=== PATIENT | male | born 1970 | race Caucasian/White ===

== ENCOUNTER 2022-08-04 21:35 | Inpatient (IN) | payer OTHER ==
[~2022-08-04] VITALS: Ht 180.3 cm; Wt 129.3 kg
[2022-08-04] MEDS ORDERED: PIPERACILLIN/TAZO 3.375 GM/D5W 50 ML IV ONE (22:00)
[2022-08-04] MEDS ORDERED: 0.9% SODIUM CHLORIDE 10 ML SYRINGE IVP PRN (22:00)
[2022-08-04] MEDS ORDERED: POVIDONE-IODINE 10% 120 ML SOLUTION TP ONE (22:15)
[2022-08-04] MEDS ORDERED: SODIUM CHLORIDE 0.9% 1,000 ML IV ONE (22:15)
[2022-08-04 22:34] LABS: BASOPHILS % (AUTO) 0.3 % (0.0-2.0); EOSINOPHILS % (AUTO) 0.6 % (1.0-6.0); HEMATOCRIT 36.5 % (41-53); HEMOGLOBIN 12.2 g/dL (13.5-17.5); LYMPHOCYTES # (AUTO) 1.1 K/uL (1.0-4.8); MEAN CORPUSCULAR HEMOGLOBIN 27.2 pg (26.0-34.0); MEAN CORPUSCULAR HGB CONC 33.4 G/dL (31.0-37.0); MEAN CORPUSCULAR VOLUME 81 fL (80-100); MONOCYTES # (AUTO) 0.6 K/uL (0.1-1.0); MONOCYTES % (AUTO) 6.8 % (2.0-9.0); NEUTROPHILS # (AUTO) 7.3 K/uL (1.8-7.7); NEUTROPHILS % (AUTO) 80.3 % (40.0-70.0); PLATELET COUNT (AUTO) 279 K/uL (150-450); RED BLOOD CELL COUNT(AUTO) 4.49 MIL/uL (4.50-5.90); RED CELL DISTRIBUTION WIDTH 14.9 % (11.5-14.5)
[2022-08-04 22:45] LABS: D-DIMER 3.52 mg/L FEU (0.00-0.50); INR 1.1 (0.9-1.1); PROTHROMBIN TIME 11.2 SEC (9.4-11.6)
[2022-08-04 22:46] LABS: ANION GAP 7 mmol/L (8-16); CALCIUM, TOTAL 8.2 mg/dL (8.8-10.5); CARBON DIOXIDE 28 mmol/L (22-29); CHLORIDE 95 mmol/L (98-107); CREATININE 0.78 mg/dL (0.60-1.30); GLOMERULAR FILTR. RATE CALC > 60 mL/min (>60); GLUCOSE,RANDOM 335 mg/dL (70-110); POTASSIUM 3.6 mmol/L (3.5-5.1); SODIUM SERUM 130 mmol/L (136-145)
[2022-08-04 22:53] LABS: ALANINE AMINOTRANSFERASE 15 U/L (12-78); ALBUMIN 2.3 g/dL (3.4-5.0); ALKALINE PHOSPHATASE 115 U/L (46-116); ASPARTATE AMINOTRANSFERASE 18 U/L (15-37); BILIRUBIN,TOTAL 0.5 mg/dL (0.1-1.0); TOTAL PROTEIN, SERUM 7.8 g/dL (6.4-8.2)
[2022-08-04 22:57] LABS: LACTIC ACID 2.1 mmol/L (0.4-2.0)
[2022-08-04 22:59] LABS: B-TYPE NATRIURETIC PEPTIDE 17 pg/mL (0-100)
[2022-08-04] MEDS ORDERED: SODIUM CHLORIDE 0.9% 3,800 ML IV ONE (23:00)
[2022-08-04] MEDS ORDERED: INSULIN REGULAR, HUMAN 100 UNITS/ML IVP ONE (23:15)
[2022-08-04] MEDS ORDERED: ACETAMINOPHEN 325 MG TABLET PO PRN (23:30)
[2022-08-04] MEDS ORDERED: DEXTROSE 50%-WATER 25 GM/50 ML SYRINGE IVP PRN (23:30)
[2022-08-04] MEDS ORDERED: ONDANSETRON HCL 4 MG/2 ML VIAL IVP PRN (23:30)
[2022-08-04] MEDS ORDERED: NALOXONE HCL 1 MG/ML 2 ML SYRINGE IVP PRN (23:45)
[2022-08-04] MEDS ORDERED: MORPHINE SULFATE 2 MG/ML SYRINGE IVP PRN (23:45)
[2022-08-04] MEDS: RINGERS SOLUTION,LACTATED 1,000 ML IV SCH (23:53)
[2022-08-04] MEDS: INSULIN GLARGINE,HUM.REC.ANLOG 100 UNITS/ML SQ SCH (23:56)
[2022-08-04] MEDS: MORPHINE SULFATE 2 MG/ML SYRINGE IVP PRN (23:58)
[2022-08-05] MEDS ORDERED: VANCOMYCIN HCL 1.5 GM in DEXTROSE 5%-WATER 250 ML IV ONE ×2
[2022-08-05] MEDS: HEPARIN SODIUM,PORCINE 5,000 UNITS/ML VIAL SQ SCH ×4 (00:24→23:44)
[2022-08-05] MEDS ORDERED: IOHEXOL 350 MG/ML 100 ML VIAL ONE ×2 (00:36→00:37)
[2022-08-05] MEDS ORDERED: SODIUM CHLORIDE 0.9% 200 ML ONE (00:37)
[2022-08-05 02:30] VITALS: BP 115/64
[2022-08-05 03:26] LABS: GLUCOMETER DEV NAME(LOC) 5N.1C; GLUCOSE,POINT OF CARE 145 MG/DL (70-110)
[2022-08-05] MEDS ORDERED: SODIUM CHLORIDE 0.9% 500 ML IV ONE (05:52)
[2022-08-05] MEDS: PIPERACILLIN/TAZO 3.375 GM/D5W 50 ML IV SCH ×4 (05:54→23:12)
[2022-08-05] MEDS: MORPHINE SULFATE 2 MG/ML SYRINGE IVP PRN (05:55)
[2022-08-05 06:09] VITALS: BP 114/72
[2022-08-05] MEDS: INSULIN LISPRO 100 UNITS/ML SQ PRN ×4 (06:13→20:17)
[2022-08-05 06:46] LABS: GLUCOMETER DEV NAME(LOC) 5S.1B; GLUCOSE,POINT OF CARE 187 MG/DL (70-110)
[2022-08-05 07:36] LABS: BASOPHILS % (AUTO) 0.2 % (0.0-2.0); EOSINOPHILS % (AUTO) 1.7 % (1.0-6.0); HEMATOCRIT 33.5 % (41-53); HEMOGLOBIN 11.3 g/dL (13.5-17.5); LYMPHOCYTES # (AUTO) 1.7 K/uL (1.0-4.8); LYMPHOCYTES % (AUTO) 21.9 % (22.0-44.0); MEAN CORPUSCULAR HEMOGLOBIN 27.3 pg (26.0-34.0); MEAN CORPUSCULAR HGB CONC 33.7 G/dL (31.0-37.0); MEAN CORPUSCULAR VOLUME 81 fL (80-100); MONOCYTES # (AUTO) 0.7 K/uL (0.1-1.0); MONOCYTES % (AUTO) 8.7 % (2.0-9.0); NEUTROPHILS # (AUTO) 5.3 K/uL (1.8-7.7); NEUTROPHILS % (AUTO) 67.5 % (40.0-70.0); PLATELET COUNT (AUTO) 259 K/uL (150-450); RED BLOOD CELL COUNT(AUTO) 4.14 MIL/uL (4.50-5.90); RED CELL DISTRIBUTION WIDTH 14.7 % (11.5-14.5)
[2022-08-05 07:45] LABS: APPEARANCE,URINE CLEAR (CLEAR); BILIRUBIN,URINE NEGATIVE (NEGATIVE); GLUCOSE, URINE (UA) 70-100 mg/dL (NEGATIVE); KETONES,URINE NEGATIVE (NEGATIVE); LEUKOCYTE ESTERASE ,URINE NEGATIVE (NEGATIVE); NITRATE,URINE NEGATIVE (NEGATIVE); OCCULT BLOOD,URINE NEGATIVE (NEGATIVE); PH,URINE 5.5 (5.0-8.0); PROTEIN,URINE TRACE mg/dL (NEGATIVE); UROBILINOGEN,URINE <=1.0 mg/dL (<=1.0)
[2022-08-05 07:49] LABS: ANION GAP 8 mmol/L (8-16); CALCIUM, TOTAL 8.1 mg/dL (8.8-10.5); CARBON DIOXIDE 27 mmol/L (22-29); CHLORIDE 97 mmol/L (98-107); CREATININE 0.56 mg/dL (0.60-1.30); GLOMERULAR FILTR. RATE CALC > 60 mL/min (>60); GLUCOSE,RANDOM 203 mg/dL (70-110); POTASSIUM 3.2 mmol/L (3.5-5.1); SODIUM SERUM 132 mmol/L (136-145)
[2022-08-05] MEDS: VANCOMYCIN HCL 1.5 GM in DEXTROSE 5%-WATER 250 ML IV SCH ×3 (08:09→23:44)
[2022-08-05] MEDS: DOCUSATE SODIUM 100 MG CAPSULE PO SCH ×2 (08:10→20:18)
[2022-08-05 08:14] LABS: OSMOLALITY,URINE 667 mOsm/kg (50-1500)
[2022-08-05 08:17] LABS: BACTERIA,URINE None Seen /HPF (None Seen); RBC,URINE None Seen /HPF (0-2); SODIUM,URINE RANDOM 104 mmol/l (20-110); SQUAMOUS EPITHELIAL CELL,UR Few /LPF (None Seen); WBC,URINE None Seen /HPF (0-5)
[2022-08-05 08:31] LABS: LACTIC ACID 1.4 mmol/L (0.4-2.0)
[2022-08-05] MEDS: RINGERS SOLUTION,LACTATED 1,000 ML IV SCH ×2 (09:59→21:36)
[2022-08-05 11:50] VITALS: BP 110/72
[2022-08-05] MEDS ORDERED: SODIUM CHLORIDE 0.9% 1,000 ML IV ONE (12:00)
[2022-08-05] MEDS ORDERED: POTASSIUM CHLORIDE 20 MEQ ER TABLET PO PRN (12:30)
[2022-08-05] MEDS ORDERED: POTASSIUM CHL 10 MEQ/WATER 50 ML IV PRN (12:30)
[2022-08-05 16:20] VITALS: BP 117/74
[2022-08-05 18:06] LABS: GLUCOMETER DEV NAME(LOC) 5S.1B; GLUCOSE,POINT OF CARE 244 MG/DL (70-110)
[2022-08-05 20:02] VITALS: BP 110/69
[2022-08-05 20:16] LABS: GLUCOMETER DEV NAME(LOC) 5S.2C; GLUCOSE,POINT OF CARE 184 MG/DL (70-110)
[2022-08-05] MEDS: INSULIN GLARGINE,HUM.REC.ANLOG 100 UNITS/ML SQ SCH (20:17)
[2022-08-05 20:26] LABS: GLUCOMETER DEV NAME(LOC) 5S.2C; GLUCOSE,POINT OF CARE 284 MG/DL (70-110)
[2022-08-05 23:09] VITALS: BP 118/71
[2022-08-06 04:54] VITALS: BP 120/79
[2022-08-06] MEDS: PIPERACILLIN/TAZO 3.375 GM/D5W 50 ML IV SCH ×4 (05:13→23:13)
[2022-08-06] MEDS: INSULIN LISPRO 100 UNITS/ML SQ PRN ×4 (05:37→22:21)
[2022-08-06 06:31] LABS: GLUCOMETER DEV NAME(LOC) 5N.1C; GLUCOSE,POINT OF CARE 197 MG/DL (70-110)
[2022-08-06 06:58] LABS: ANION GAP 3 mmol/L (8-16); CALCIUM, TOTAL 8.1 mg/dL (8.8-10.5); CARBON DIOXIDE 32 mmol/L (22-29); CHLORIDE 98 mmol/L (98-107); CREATININE 0.69 mg/dL (0.60-1.30); GLOMERULAR FILTR. RATE CALC > 60 mL/min (>60); GLUCOSE,RANDOM 203 mg/dL (70-110); POTASSIUM 4.1 mmol/L (3.5-5.1); SODIUM SERUM 133 mmol/L (136-145); VANCOMYCIN,RANDOM 24.3 mcg/mL (25.0-50.0)
[2022-08-06 07:31] VITALS: BP 131/73
[2022-08-06] MEDS: VANCOMYCIN HCL 1.5 GM in DEXTROSE 5%-WATER 250 ML IV SCH ×2 (08:18→17:34)
[2022-08-06] MEDS: HEPARIN SODIUM,PORCINE 5,000 UNITS/ML VIAL SQ SCH ×2 (08:18→17:36)
[2022-08-06] MEDS: RINGERS SOLUTION,LACTATED 1,000 ML IV SCH ×2 (08:18→17:36)
[2022-08-06] MEDS: DOCUSATE SODIUM 100 MG CAPSULE PO SCH ×2 (08:19→21:00)
[2022-08-06] MEDS: PETROLATUM,WHITE 28 GM JELLY TP SCH (08:20)
[2022-08-06 11:33] VITALS: BP 121/74
[2022-08-06] MEDS: MORPHINE SULFATE 2 MG/ML SYRINGE IVP PRN ×3 (12:48→23:18)
[2022-08-06 15:03] VITALS: BP 118/66
[2022-08-06 18:27] LABS: GLUCOMETER DEV NAME(LOC) 6N.1; GLUCOSE,POINT OF CARE 182 MG/DL (70-110)
[2022-08-06 19:28] VITALS: BP 121/72
[2022-08-06 20:26] LABS: GLUCOMETER DEV NAME(LOC) 5S.2C; GLUCOSE,POINT OF CARE 191 MG/DL (70-110)
[2022-08-06] MEDS: INSULIN GLARGINE,HUM.REC.ANLOG 100 UNITS/ML SQ SCH (22:23)
[2022-08-07] MEDS: VANCOMYCIN HCL 1.5 GM in DEXTROSE 5%-WATER 250 ML IV SCH ×3 (00:04→16:00)
[2022-08-07 02:16] LABS: GLUCOMETER DEV NAME(LOC) 6N.2B; GLUCOSE,POINT OF CARE 213 MG/DL (70-110)
[2022-08-07] MEDS: PIPERACILLIN/TAZO 3.375 GM/D5W 50 ML IV SCH ×4 (05:02→22:51)
[2022-08-07] MEDS: RINGERS SOLUTION,LACTATED 1,000 ML IV SCH ×3 (05:03→21:31)
[2022-08-07] MEDS: MORPHINE SULFATE 2 MG/ML SYRINGE IVP PRN ×2 (05:04→19:58)
[2022-08-07 05:06] VITALS: BP 131/74
[2022-08-07] MEDS: INSULIN LISPRO 100 UNITS/ML SQ PRN ×4 (05:13→21:24)
[2022-08-07 06:47] LABS: ANION GAP 5 mmol/L (8-16); C-REACTIVE PROTEIN QUANT 6.25 mg/dL (0.00-0.30); CALCIUM, TOTAL 8.9 mg/dL (8.8-10.5); CARBON DIOXIDE 32 mmol/L (22-29); CHLORIDE 96 mmol/L (98-107); CREATININE 0.64 mg/dL (0.60-1.30); GLOMERULAR FILTR. RATE CALC > 60 mL/min (>60); GLUCOSE,RANDOM 181 mg/dL (70-110); POTASSIUM 3.9 mmol/L (3.5-5.1); SODIUM SERUM 133 mmol/L (136-145)
[2022-08-07 07:11] LABS: GLUCOMETER DEV NAME(LOC) 6N.1; GLUCOSE,POINT OF CARE 160 MG/DL (70-110)
[2022-08-07 08:00] VITALS: BP 127/79
[2022-08-07 08:28] VITALS: BP 121/73
[2022-08-07] MEDS: PETROLATUM,WHITE 28 GM JELLY TP SCH (09:00)
[2022-08-07] MEDS ORDERED: SODIUM CHLORIDE 0.9% 500 ML IV ONE (09:08)
[2022-08-07] MEDS: DOCUSATE SODIUM 100 MG CAPSULE PO SCH ×2 (09:29→21:21)
[2022-08-07] MEDS: HEPARIN SODIUM,PORCINE 5,000 UNITS/ML VIAL SQ SCH ×3 (09:30→16:31)
[2022-08-07 12:11] LABS: GLUCOMETER DEV NAME(LOC) 6N.2B; GLUCOSE,POINT OF CARE 144 MG/DL (70-110)
[2022-08-07 15:50] VITALS: BP 117/75
[2022-08-07 19:23] VITALS: BP 135/73
[2022-08-07] MEDS: INSULIN GLARGINE,HUM.REC.ANLOG 100 UNITS/ML SQ SCH (21:24)
[2022-08-07 21:26] LABS: GLUCOMETER DEV NAME(LOC) 6N.2B; GLUCOSE,POINT OF CARE 159 MG/DL (70-110)
[2022-08-08] MEDS: HEPARIN SODIUM,PORCINE 5,000 UNITS/ML VIAL SQ SCH ×4 (00:11→23:56)
[2022-08-08] MEDS: VANCOMYCIN HCL 1.5 GM in DEXTROSE 5%-WATER 250 ML IV SCH ×2 (00:11→09:02)
[2022-08-08 04:10] VITALS: BP 128/78
[2022-08-08] MEDS: PIPERACILLIN/TAZO 3.375 GM/D5W 50 ML IV SCH ×4 (04:10→22:45)
[2022-08-08] MEDS: INSULIN LISPRO 100 UNITS/ML SQ PRN ×4 (05:50→20:59)
[2022-08-08] MEDS ORDERED: BUPIVACAINE HCL/PF 0.25% 30 ML VIAL ONE (06:33)
[2022-08-08] MEDS ORDERED: VANCOMYCIN HCL 1 GM/VIAL ONE (06:33)
[2022-08-08] MEDS ORDERED: LIDOCAINE/PF 1% 30 ML VIAL ONE (06:33)
[2022-08-08] MEDS ORDERED: SODIUM CHLORIDE 0.9% 1,000 ML ONE (06:34)
[2022-08-08] MEDS: RINGERS SOLUTION,LACTATED 1,000 ML IV SCH ×2 (07:07→17:30)
[2022-08-08 07:42] LABS: ANION GAP 5 mmol/L (8-16); CARBON DIOXIDE 32 mmol/L (22-29); CHLORIDE 98 mmol/L (98-107); CREATININE 0.65 mg/dL (0.60-1.30); GLOMERULAR FILTR. RATE CALC > 60 mL/min (>60); GLUCOSE,RANDOM 159 mg/dL (70-110); POTASSIUM 3.6 mmol/L (3.5-5.1); SODIUM SERUM 135 mmol/L (136-145); VANCOMYCIN,RANDOM 25.1 mcg/mL (25.0-50.0)
[2022-08-08] MEDS ORDERED: MEPERIDINE-PF 25 MG/ML VIAL IVP PRN (07:45)
[2022-08-08] MEDS ORDERED: FentaNYL CITRATE PF 100 MCG/2 ML VIAL IVP PRN (07:45)
[2022-08-08] MEDS ORDERED: HYDROmorphone HCL 2 MG/ML SYRINGE IVP PRN (07:45)
[2022-08-08] MEDS: OXYGEN THERAPY IH SCH ×2 (08:00→21:00)
[2022-08-08 08:11] LABS: GLUCOMETER DEV NAME(LOC) 6N.1; GLUCOSE,POINT OF CARE 176 MG/DL (70-110)
[2022-08-08 08:11] LABS: GLUCOMETER DEV NAME(LOC) 6N.1; GLUCOSE,POINT OF CARE 154 MG/DL (70-110)
[2022-08-08] MEDS: PETROLATUM,WHITE 28 GM JELLY TP SCH (09:00)
[2022-08-08] MEDS: DOCUSATE SODIUM 100 MG CAPSULE PO SCH ×2 (09:01→21:00)
[2022-08-08 09:46] VITALS: BP 121/61
[2022-08-08 13:11] LABS: GLUCOMETER DEV NAME(LOC) 6N.2B; GLUCOSE,POINT OF CARE 181 MG/DL (70-110)
[2022-08-08] MEDS ORDERED: SODIUM CHLORIDE 0.9% 500 ML IV ONE ×2 (13:52→18:25)
[2022-08-08] MEDS: MORPHINE SULFATE 2 MG/ML SYRINGE IVP PRN ×2 (15:02→21:04)
[2022-08-08 15:35] VITALS: BP 124/77
[2022-08-08] MEDS: VANCOMYCIN HCL 1.25 GM in DEXTROSE 5%-WATER 250 ML IV SCH ×2 (16:04→23:56)
[2022-08-08 18:51] LABS: GLUCOMETER DEV NAME(LOC) 6N.2B; GLUCOSE,POINT OF CARE 168 MG/DL (70-110)
[2022-08-08 20:47] VITALS: BP 107/71
[2022-08-08] MEDS: INSULIN GLARGINE,HUM.REC.ANLOG 100 UNITS/ML SQ SCH (21:00)
[2022-08-09] MEDS: RINGERS SOLUTION,LACTATED 1,000 ML IV SCH ×2 (03:30→11:40)
[2022-08-09 04:05] VITALS: BP 114/68
[2022-08-09] MEDS: PIPERACILLIN/TAZO 3.375 GM/D5W 50 ML IV SCH ×4 (04:11→22:02)
[2022-08-09 05:01] LABS: GLUCOMETER DEV NAME(LOC) 6N.1; GLUCOSE,POINT OF CARE 194 MG/DL (70-110)
[2022-08-09] MEDS ORDERED: PROPOFOL 1% 20 ML VIAL IVP ONE (05:57)
[2022-08-09] MEDS ORDERED: LIDOCAINE/PF 2% 5 ML VIAL IM ONE (05:57)
[2022-08-09] MEDS ORDERED: FentaNYL CITRATE PF 100 MCG/2 ML VIAL IVP ONE (05:57)
[2022-08-09] MEDS ORDERED: MIDAZOLAM HCL 2 MG/2 ML VIAL IVP ONE (05:57)
[2022-08-09] MEDS: INSULIN LISPRO 100 UNITS/ML SQ PRN ×3 (06:35→20:45)
[2022-08-09 06:51] LABS: GLUCOMETER DEV NAME(LOC) 6N.2B; GLUCOSE,POINT OF CARE 186 MG/DL (70-110)
[2022-08-09 08:16] LABS: ANION GAP 6 mmol/L (8-16); CALCIUM, TOTAL 8.8 mg/dL (8.8-10.5); CARBON DIOXIDE 31 mmol/L (22-29); CHLORIDE 98 mmol/L (98-107); GLOMERULAR FILTR. RATE CALC > 60 mL/min (>60); GLUCOSE,RANDOM 167 mg/dL (70-110); POTASSIUM 3.9 mmol/L (3.5-5.1); SODIUM SERUM 135 mmol/L (136-145); VANCOMYCIN,RANDOM 27.3 mcg/mL (25.0-50.0)
[2022-08-09 08:17] VITALS: BP 118/76
[2022-08-09] MEDS: DOCUSATE SODIUM 100 MG CAPSULE PO SCH ×2 (08:19→20:44)
[2022-08-09] MEDS: HEPARIN SODIUM,PORCINE 5,000 UNITS/ML VIAL SQ SCH ×3 (08:19→23:24)
[2022-08-09] MEDS: MORPHINE SULFATE 2 MG/ML SYRINGE IVP PRN ×2 (08:25→15:59)
[2022-08-09] MEDS: PETROLATUM,WHITE 28 GM JELLY TP SCH (09:00)
[2022-08-09] MEDS: OXYGEN THERAPY IH SCH ×2 (10:16→21:18)
[2022-08-09 12:42] LABS: GLUCOMETER DEV NAME(LOC) 6N.2B; GLUCOSE,POINT OF CARE 173 MG/DL (70-110)
[2022-08-09 15:34] VITALS: BP 126/78
[2022-08-09 19:30] VITALS: BP 120/69
[2022-08-09] MEDS: INSULIN GLARGINE,HUM.REC.ANLOG 100 UNITS/ML SQ SCH (20:47)
[2022-08-09] MEDS: VANCOMYCIN HCL 1.25 GM in DEXTROSE 5%-WATER 250 ML IV SCH (20:48)
[2022-08-10 01:21] LABS: GLUCOMETER DEV NAME(LOC) 6N.2B; GLUCOSE,POINT OF CARE 130 MG/DL (70-110)
[2022-08-10 01:21] LABS: GLUCOMETER DEV NAME(LOC) 6N.2B; GLUCOSE,POINT OF CARE 237 MG/DL (70-110)
[2022-08-10 03:42] VITALS: BP 118/72
[2022-08-10] MEDS: PIPERACILLIN/TAZO 3.375 GM/D5W 50 ML IV SCH ×4 (04:13→23:54)
[2022-08-10] MEDS: INSULIN LISPRO 100 UNITS/ML SQ PRN ×3 (06:06→20:37)
[2022-08-10 06:36] LABS: GLUCOMETER DEV NAME(LOC) 6N.2B; GLUCOSE,POINT OF CARE 156 MG/DL (70-110)
[2022-08-10 07:35] LABS: ANION GAP 8 mmol/L (8-16); CALCIUM, TOTAL 9.1 mg/dL (8.8-10.5); CARBON DIOXIDE 30 mmol/L (22-29); CHLORIDE 97 mmol/L (98-107); CREATININE 0.72 mg/dL (0.60-1.30); GLOMERULAR FILTR. RATE CALC > 60 mL/min (>60); GLUCOSE,RANDOM 156 mg/dL (70-110); SODIUM SERUM 135 mmol/L (136-145)
[2022-08-10 08:00] VITALS: BP 114/62
[2022-08-10] MEDS: OXYGEN THERAPY IH SCH ×2 (08:00→20:39)
[2022-08-10] MEDS: DOCUSATE SODIUM 100 MG CAPSULE PO SCH ×2 (08:09→20:39)
[2022-08-10] MEDS: HEPARIN SODIUM,PORCINE 5,000 UNITS/ML VIAL SQ SCH ×3 (08:10→23:55)
[2022-08-10] MEDS: MORPHINE SULFATE 2 MG/ML SYRINGE IVP PRN ×2 (08:10→23:54)
[2022-08-10] MEDS: VANCOMYCIN HCL 1.25 GM in DEXTROSE 5%-WATER 250 ML IV SCH ×2 (08:11→20:33)
[2022-08-10] MEDS: PETROLATUM,WHITE 28 GM JELLY TP SCH (11:25)
[2022-08-10 13:16] LABS: GLUCOMETER DEV NAME(LOC) 6N.2B; GLUCOSE,POINT OF CARE 156 MG/DL (70-110)
[2022-08-10 15:17] VITALS: BP 131/76
[2022-08-10 17:36] LABS: GLUCOMETER DEV NAME(LOC) 6N.2B; GLUCOSE,POINT OF CARE 112 MG/DL (70-110)
[2022-08-10 19:38] VITALS: BP 128/74
[2022-08-10] MEDS: INSULIN GLARGINE,HUM.REC.ANLOG 100 UNITS/ML SQ SCH (20:37)
[2022-08-11 00:51] LABS: GLUCOMETER DEV NAME(LOC) 6N.2B; GLUCOSE,POINT OF CARE 215 MG/DL (70-110)
[2022-08-11] MEDS: PIPERACILLIN/TAZO 3.375 GM/D5W 50 ML IV SCH ×4 (04:20→23:12)
[2022-08-11 05:21] VITALS: BP 105/68
[2022-08-11 07:06] LABS: GLUCOMETER DEV NAME(LOC) 6N.1; GLUCOSE,POINT OF CARE 139 MG/DL (70-110)
[2022-08-11] MEDS: HEPARIN SODIUM,PORCINE 5,000 UNITS/ML VIAL SQ SCH ×3 (07:41→23:12)
[2022-08-11] MEDS: VANCOMYCIN HCL 1.25 GM in DEXTROSE 5%-WATER 250 ML IV SCH ×2 (07:41→20:25)
[2022-08-11] MEDS: OXYGEN THERAPY IH SCH ×2 (08:00→20:31)
[2022-08-11 08:26] VITALS: BP 116/70
[2022-08-11] MEDS: DOCUSATE SODIUM 100 MG CAPSULE PO SCH ×2 (09:00→20:30)
[2022-08-11 11:16] LABS: BASOPHILS % (AUTO) 0.3 % (0.0-2.0); EOSINOPHILS % (AUTO) 2.6 % (1.0-6.0); HEMATOCRIT 37.6 % (41-53); HEMOGLOBIN 12.7 g/dL (13.5-17.5); LYMPHOCYTES # (AUTO) 1.5 K/uL (1.0-4.8); LYMPHOCYTES % (AUTO) 22.2 % (22.0-44.0); MEAN CORPUSCULAR HEMOGLOBIN 27.6 pg (26.0-34.0); MEAN CORPUSCULAR HGB CONC 33.6 G/dL (31.0-37.0); MEAN CORPUSCULAR VOLUME 82 fL (80-100); MONOCYTES # (AUTO) 0.5 K/uL (0.1-1.0); NEUTROPHILS # (AUTO) 4.6 K/uL (1.8-7.7); NEUTROPHILS % (AUTO) 67.9 % (40.0-70.0); PLATELET COUNT (AUTO) 259 K/uL (150-450); RED BLOOD CELL COUNT(AUTO) 4.58 MIL/uL (4.50-5.90); RED CELL DISTRIBUTION WIDTH 15.5 % (11.5-14.5)
[2022-08-11] MEDS: PETROLATUM,WHITE 28 GM JELLY TP SCH (11:31)
[2022-08-11] MEDS: INSULIN LISPRO 100 UNITS/ML SQ PRN ×2 (11:32→20:29)
[2022-08-11 11:40] LABS: ANION GAP 7 mmol/L (8-16); CARBON DIOXIDE 30 mmol/L (22-29); CHLORIDE 97 mmol/L (98-107); CREATININE 0.74 mg/dL (0.60-1.30); GLOMERULAR FILTR. RATE CALC > 60 mL/min (>60); GLUCOSE,RANDOM 215 mg/dL (70-110); POTASSIUM 3.9 mmol/L (3.5-5.1); SODIUM SERUM 134 mmol/L (136-145)
[2022-08-11 14:56] LABS: GLUCOMETER DEV NAME(LOC) 6N.1; GLUCOSE,POINT OF CARE 165 MG/DL (70-110)
[2022-08-11 16:44] VITALS: BP 103/60
[2022-08-11] MEDS: MORPHINE SULFATE 2 MG/ML SYRINGE IVP PRN (17:11)
[2022-08-11 19:01] LABS: GLUCOMETER DEV NAME(LOC) 6N.1; GLUCOSE,POINT OF CARE 108 MG/DL (70-110)
[2022-08-11 19:55] VITALS: BP 119/70
[2022-08-11] MEDS: INSULIN GLARGINE,HUM.REC.ANLOG 100 UNITS/ML SQ SCH (20:30)
[2022-08-12 00:01] LABS: GLUCOMETER DEV NAME(LOC) 6S.1B; GLUCOSE,POINT OF CARE 188 MG/DL (70-110)
[2022-08-12 03:54] VITALS: BP 110/70
[2022-08-12] MEDS: PIPERACILLIN/TAZO 3.375 GM/D5W 50 ML IV SCH ×4 (04:42→23:48)
[2022-08-12] MEDS: INSULIN LISPRO 100 UNITS/ML SQ PRN ×3 (05:58→20:18)
[2022-08-12 07:09] VITALS: BP 112/66
[2022-08-12 07:27] LABS: GLUCOMETER DEV NAME(LOC) 6N.2B; GLUCOSE,POINT OF CARE 150 MG/DL (70-110)
[2022-08-12 07:52] LABS: ANION GAP 5 mmol/L (8-16); CALCIUM, TOTAL 8.9 mg/dL (8.8-10.5); CARBON DIOXIDE 30 mmol/L (22-29); CHLORIDE 97 mmol/L (98-107); CREATININE 0.76 mg/dL (0.60-1.30); GLOMERULAR FILTR. RATE CALC > 60 mL/min (>60); GLUCOSE,RANDOM 150 mg/dL (70-110); POTASSIUM 3.8 mmol/L (3.5-5.1); SODIUM SERUM 132 mmol/L (136-145)
[2022-08-12 08:33] LABS: VANCOMYCIN,RANDOM 18.5 mcg/mL (25.0-50.0)
[2022-08-12] MEDS: DOCUSATE SODIUM 100 MG CAPSULE PO SCH ×2 (09:00→20:14)
[2022-08-12] MEDS: HEPARIN SODIUM,PORCINE 5,000 UNITS/ML VIAL SQ SCH ×3 (09:46→23:54)
[2022-08-12] MEDS: PETROLATUM,WHITE 28 GM JELLY TP SCH (09:46)
[2022-08-12] MEDS: VANCOMYCIN HCL 1.25 GM in DEXTROSE 5%-WATER 250 ML IV SCH ×2 (09:53→20:09)
[2022-08-12] MEDS ORDERED: LEVO750T68 PO (12:22)
[2022-08-12] MEDS ORDERED: CEFA2IV IV (12:24)
[2022-08-12 14:46] LABS: GLUCOMETER DEV NAME(LOC) 6N.2B; GLUCOSE,POINT OF CARE 140 MG/DL (70-110)
[2022-08-12 16:08] VITALS: BP 127/69
[2022-08-12] MEDS ORDERED: SODIUM CHLORIDE 0.9% 250 ML IV ONE (17:01)
[2022-08-12] MEDS: MORPHINE SULFATE 2 MG/ML SYRINGE IVP PRN (17:37)
[2022-08-12 18:31] LABS: GLUCOMETER DEV NAME(LOC) 6N.1; GLUCOSE,POINT OF CARE 163 MG/DL (70-110)
[2022-08-12] MEDS: OXYGEN THERAPY IH SCH (20:00)
[2022-08-12 20:02] VITALS: BP 117/65
[2022-08-12] MEDS: INSULIN GLARGINE,HUM.REC.ANLOG 100 UNITS/ML SQ SCH (20:19)
[2022-08-12 23:36] LABS: GLUCOMETER DEV NAME(LOC) 6N.1; GLUCOSE,POINT OF CARE 156 MG/DL (70-110)
[2022-08-13] MEDS: PIPERACILLIN/TAZO 3.375 GM/D5W 50 ML IV SCH ×2 (04:26→12:03)
[2022-08-13 04:55] VITALS: BP 118/68
[2022-08-13] MEDS: INSULIN LISPRO 100 UNITS/ML SQ PRN ×2 (06:10→12:03)
[2022-08-13 06:51] LABS: GLUCOMETER DEV NAME(LOC) 6N.2B; GLUCOSE,POINT OF CARE 150 MG/DL (70-110)
[2022-08-13 07:25] VITALS: BP 120/71
[2022-08-13 08:03] LABS: ANION GAP 9 mmol/L (8-16); CARBON DIOXIDE 29 mmol/L (22-29); CHLORIDE 97 mmol/L (98-107); CREATININE 0.73 mg/dL (0.60-1.30); GLOMERULAR FILTR. RATE CALC > 60 mL/min (>60); GLUCOSE,RANDOM 145 mg/dL (70-110); POTASSIUM 3.9 mmol/L (3.5-5.1); SODIUM SERUM 135 mmol/L (136-145)
[2022-08-13] MEDS: DOCUSATE SODIUM 100 MG CAPSULE PO SCH (08:09)
[2022-08-13] MEDS: OXYGEN THERAPY IH SCH (08:09)
[2022-08-13] MEDS: VANCOMYCIN HCL 1.25 GM in DEXTROSE 5%-WATER 250 ML IV SCH (08:09)
[2022-08-13] MEDS: PETROLATUM,WHITE 28 GM JELLY TP SCH (08:10)
[2022-08-13] MEDS: HEPARIN SODIUM,PORCINE 5,000 UNITS/ML VIAL SQ SCH (08:10)
[2022-08-13 15:59] VITALS: BP 121/72
[2022-08-13 18:21] LABS: GLUCOMETER DEV NAME(LOC) 6N.2B; GLUCOSE,POINT OF CARE 145 MG/DL (70-110)
== END 2022-08-13 16:30 | DRG 710 ==
LOC: EMS 21:35 → 5S 08-05 01:32 → 6S 08-06 14:30
PROVIDERS: ADMIT Internal Medicine; ATTEND Internal Medicine
PROC: 05HA33Z Insertion of Infusion Device into Left Brachial Vein, Percutaneous Approach (ICD-10-PCS; 2022-08-07)
PROC: 0Y9M0ZZ Drainage of Right Foot, Open Approach (ICD-10-PCS; principal; 2022-08-09)
PROC: 0Y6N0ZF Detachment at Left Foot, Partial 5th Ray, Open Approach (ICD-10-PCS; 2022-08-09)
DX: A41.9 Sepsis, unspecified organism (principal); L03.115 Cellulitis of right lower limb; E44.1 Mild protein-calorie malnutrition; E11.621 Type 2 diabetes mellitus with foot ulcer; L97.519 Non-pressure chronic ulcer of other part of right foot with unspecified severity; S91.301A Unspecified open wound, right foot, initial encounter; L02.611 Cutaneous abscess of right foot; M86.8X7 Other osteomyelitis, ankle and foot; E11.69 Type 2 diabetes mellitus with other specified complication; L03.116 Cellulitis of left lower limb; E11.65 Type 2 diabetes mellitus with hyperglycemia; Q90.9 Down syndrome, unspecified; E66.01 Morbid (severe) obesity due to excess calories; Z68.41 Body mass index [BMI] 40.0-44.9, adult; I10 Essential (primary) hypertension; I45.10 Unspecified right bundle-branch block; L97.529 Non-pressure chronic ulcer of other part of left foot with unspecified severity; S91.302A Unspecified open wound, left foot, initial encounter; X58.XXXA Exposure to other specified factors, initial encounter; Y93.89 Activity, other specified; Y92.89 Other specified places as the place of occurrence of the external cause; Y99.8 Other external cause status
CPT/HCPCS: 36245; 36569; 71045; 71275; 73701; 73718; 76937; 80048; 80053; 80202; 81001; 82962; 83605; 83735; 83880; 83930; 83935; 84132; 84145; 84300; 84484; 85025; 85379; 85610; 86140; 87040; 87070; 87101; 87186; 87205; 87481; 88304; 93005; 93925; 93971; 97110; 97162; 97166; 97535; 99291; J1644; J1815; J2250; J2270; J2543; J2704; J3010; J3370; J3490; J7030; J7040; J7050; J7060; J7120; Q9967; 36415-L1; 36415-TC